=== PATIENT | female | born 1975 | race Caucasian/White ===

== ENCOUNTER → 2020-08-31 | Outpatient (CLI) | payer BC ==
[2020-08-31 08:04] LABS: Basophils # (A) 0.1 k/uL (0-0.2); Basophils % (A) 1 %; Eosinophils # (A) 0.4 k/uL (0-0.7); Eosinophils % (A) 4 %; HCT 43.5 % (34.0-46.0); HGB 14.6 gm/dL (11.4-16.0); Lymphocytes # (A) 1.4 k/uL (1.0-4.8); Lymphocytes % (A) 16 %; MCH 30.8 pg (25.0-35.0); MCHC 33.6 g/dL (31.0-37.0); MCV 91.7 fL (80.0-100.0); Mean Platelet Volume 7.7; Monocytes # (A) 0.5 k/uL (0-1.0); Monocytes % (A) 6 %; Neutrophils # (A) 6.3 k/uL (1.3-7.7); Neutrophils % (A) 72 %; Platelet Count 317 k/uL (150-450); RBC 4.74 m/uL (3.80-5.40); RDW 12.7 % (11.5-15.5); WBC 8.8 k/uL (3.8-10.6)
[2020-08-31 08:29] LABS: ALT 25 U/L (4-34); AST 26 U/L (14-36); African American GFR (CKD) >90 (>60 ml/min/1.73 sqM); Albumin 4.4 g/dL (3.5-5.0); Albumin/Globulin Ratio 1.6; Alkaline Phosphatase 56 U/L (38-126); Anion Gap 7 mmol/L; Blood Urea Nitrogen 11 mg/dL (7-17); Calcium 9.8 mg/dL (8.4-10.2); Carbon Dioxide 28 mmol/L (22-30); Chloride 103 mmol/L (98-107); Globulin 2.8 g/dL; Glucose 116 mg/dL (74-99); Non-African American GFR(CKD) >90 (>60 ml/min/1.73 sqM); Potassium 4.8 mmol/L (3.5-5.1); Sodium 138 mmol/L (137-145); Total Bilirubin 1.4 mg/dL (0.2-1.3); Total Protein 7.2 g/dL (6.3-8.2)
[2020-08-31 08:45] LABS: T4, Free (Free Thyroxine) 0.83 ng/dL (0.78-2.19)
--- NOTE | 2020-08-31 08:48 | US ---
EXAMINATION TYPE: US abdomen complete DATE OF EXAM: 08/31/2020 COMPARISON: NONE CLINICAL HISTORY: R10.9 ABD PAIN. pain EXAM MEASUREMENTS: Liver Length: 14.3 cm Gallbladder Wall: .2 cm CBD: .4 cm Spleen: 10.2 cm Right Kidney: 10.8 x 4.2 x 4.4 cm Left Kidney: 10.6 x 5.3 x 4.4 cm Pancreas: Tail obscured by overlying bowel gas Liver: wnl Gallbladder: wnl Evidence for sonographic Velez's sign: No CBD: wnl Spleen: wnl Right Kidney: wnl Left Kidney: wnl Upper IVC: wnl Abd Aorta: wnl The liver is homogenous. The intrahepatic portion of the IVC and proximal abdominal aorta are within normal limits. There is no evidence of cholelithiasis. Common bile duct is unremarkable. The visu alized portions of the pancreas are homogenous. The spleen is unremarkable. Kidneys are symmetric a nd free of hydronephrosis. No renal lesions are seen. IMPRESSION: Unremarkable abdomen.
[2020-08-31 21:13] LABS: Chol/HDL Ratio 4.25; Cholesterol 204 mg/dL (0-200); LDL Cholesterol,Calculated 117.6 mg/dL (0.0-131.0)
[2020-08-31 21:24] LABS: Estradiol 143.2 pg/mL; Follicle Stimulating Hormone 9.3 mIU/mL
--- NOTE | 2020-09-10 08:26 | MM ---
Reason for exam: screening (asymptomatic). Last mammogram was performed 1 year and 9 months ago. History: Retro-pectoral silicone gel implants in both breasts, 2010. Physical Findings: A clinical breast exam by your physician is recommended on an annual basis and results should be correlated with mammographic findings. MG Screening Mammo Implant/CAD Bilateral CC, MLO, and ID view(s) were taken. Prior study comparison: December 16, 2018, mammogram, performed at [facility]. September 14, 2017, mammogram, performed at [facility]. There are scattered fibroglandular densities. There is no discrete abnormality. Bilateral implants are intact. No significant changes when compared with prior studies. ASSESSMENT: Negative, BI-RAD 1 RECOMMENDATION: Routine screening mammogram of both breasts in 1 year.
== END | disposition home or self-care (01) ==
LOC: RADMAMWWP 07:02 → MERGE 07:40
PROVIDERS: ATTEND Family Medicine
DX: R10.9 Unspecified abdominal pain (principal)
CPT/HCPCS: 76700; 77067; 80053; 80061; 82306; 82670; 83001; 83002; 84439; 84443; 85025

== ENCOUNTER 2021-02-20 08:14 | Emergency (ER) | payer BC ==
[2021-02-20] MEDS ORDERED: ONDANSETRON 4 MG/2 ML VIAL IVP STA (08:39)
[2021-02-20] MEDS ORDERED: MORPHINE SULFATE 4 MG/ML SYRINGE IV STA (08:39)
[2021-02-20] MEDS ORDERED: diphenhydrAMINE 50 MG/ML 1 ML VIAL IVP STA (08:39)
[2021-02-20] MEDS ORDERED: SODIUM CHLORIDE 0.9% 1,000 ML IV STA ×2 (08:39→09:27)
[2021-02-20] MEDS ORDERED: FAMOTIDINE 20 MG/2 ML VIAL IV STA (08:42)
--- NOTE | 2021-02-20 09:02 | ED ---
General Adult HPI - General Chief complaint: Abdominal Pain Stated complaint: Abd Pain/Vomiting Time Seen by Provider: 02/20/21 08:27 Source: patient, RN notes reviewed, old records reviewed Mode of arrival: ambulatory Limitations: no limitations - History of Present Illness Initial comments: Patient is a 45-year-old female with past medical history remarkable for chronic abdominal pain presents with Department complaining of acute on chronic abdomina l pain. States that her pain this morning was worse. States it was left-sided. Describes as a sharp, throbbing sensation. States is severe primarily left lower quadrant with radiation around the left flank. Endorses nausea as well as intermittent nonbilious nonbloody emesis. Denies any change in bowel movements and had normal bowel movement this morning. Denies any bloody emesis or bloody bowel movements. His no hematuria or dysuria. Denies any vaginal discharge. Denies any history of ovarian cysts. Denies any history of kidney stones. Denies any chest pain, shortness of breath. His no other acute complaints at this time. Believe she may have IBS, however this pain is worse. - Related Data Previous Rx's Medication Instructions Recorded HYDROcodone/APAP 5-325MG [[place] 5] 1 each PO Q6HR PRN 3 Days #12 tab 02/20/21 Ibuprofen [Motrin] 800 mg PO Q8H PRN 14 Days #42 tab 02/20/21 Ondansetron Odt [Zofran Odt] 4 mg PO Q8HR PRN 3 Days #9 tab 02/20/21 Tamsulosin HCl [Flomax] 0.4 mg PO DAILY #14 capsule 02/20/21 Allergies Allergy/AdvReac Type Severity Reaction Status Date / Time No Known Allergies Allergy Verified 02/20/21 08:21 Review of Systems ROS Statement: Those systems with pertinent positive or pertinent negative responses have been documented in the HPI. Review of Systems: CONST: Denies fever EYES: Denies blurry vision ENT: Denies nasal congestion C/V: Denies Chest pain RESP: Denies shortness of breath GI: Endorses abdominal pain : Denies dysuria SKIN: Denies rash. MSK: Denies joint pain. NEURO: Denies headache ROS Other: All systems not noted in ROS Statement are negative. Past Medical History Past Medical History: No Reported History History of Any Multi-Drug Resistant Organisms: None Reported Past Surgical History: Breast Surgery, Section Past Psychological History: Anxiety, Depression Smoking Status: Former smoker Past Alcohol Use History: Occasional Past Drug Use History: None Reported General Exam - General Exam Comments Initial Comments: General: Appears in moderate distress secondary to abdominal pain. HEAD: Normal with no signs of head trauma. EYES: PERRLA, EOMI, conjunctiva normal, no discharge. ENT: Hearing grossly intact, normal oropharynx. RESPIRATORY: Clear breath sounds bilaterally. No wheezes, rales, or rhonchi. C/V: Regular rate and rhythm. S1 and S2 auscultated, no edema, peripheral pulses 2+ and intact throughout ABD: Abdomen soft, distended. Patient is mildly tender to palpation left lower quadrant. No CVA tenderness to percussion. No guarding or rebound tenderness. No peritoneal signs. Patient also has left flank tenderness as well. EXT: Normal range of motion, no obvious deformity SKIN: No rashes or lesions observed on exposed skin. NEURO: Alert and oriented 4. No focal deficits. Limitations: no limitations Course Vital Signs 02/20/21 02/20/21 08:21 10:00 Temperature 98 F 97.7 F Pulse Rate 75 71 Respiratory 18 14 Rate Blood Pressure 168/87 138/101 O2 Sat by Pulse 100 99 Oximetry Medical Decision Making - Medical Decision Making Based on the patient's presentation and physical exam, I'm concerned for acute intra-abdominal process for his current symptoms. We'll obtain abdominal laboratory studies. We'll also obtain CT abdomen and pelvis with contrast as well as ultrasound of both the pelvis to rule out torsion as well as renal ultrasound to evaluate for hydronephrosis in the setting of a kidney stone. Patient was in agreement this plan. She'll be administered IV analgesia, a GI cocktail, as well as IV fluids. Screening EKG will also be obtained. EKG showed normal sinus rhythm with no signs of acute ischemia.Laboratory studies are remarkable for a mild lactic acidosis of 2.6 which is likely secondary to nausea and vomiting. Urinalysis shows a large amount of blood, however no signs of infection. She is not . Imaging showed no signs of ovarian torsion. Patient does have mild hydronephrosis on the left side secondary to a minimally obstructing 3-4 mm kidney stone. This is an 11 mm lesion in the left lobe of the liver that should be followed up with MRI for further evaluation. Remainder the labs are unremarkable. Reevaluation come patient's symptoms resolved. She is tolerating oral intake. I do believe it is safer to be discharged home with follow-up with urology. She was in agreement this plan. We discussed the findings of her laboratory studies and imaging and I informed her that she has nephrolithiasis. I will provide the patient with a prescription for Flomax, NORCO 5. I instructed the patient to follow up with their PCP in the next 3 days. [I provided contact information for follow up with] urology. I explained that the patient should return to the emergency department if they experience any worsening symptoms. Strict return precautions were discussed with the patient. The patient expressed understanding of these instructions. I answered all questions that the patient had. The patient was discharged home in fair condition with their prescriptions and follow up information. - Lab Data Result diagrams: 02/20/21 08:46 02/20/21 08:46 Lab Results 02/20/21 02/20/21 02/20/21 Range/Units 08:36 08:46 08:46 WBC 7.3 (3.8-10.6) k/uL RBC 4.95 (3.80-5.40) m/uL Hgb 15.7 (11.4-16.0) gm/dL Hct 46.1 H (34.0-46.0) % MCV 93.0 (80.0-100.0) fL MCH 31.7 (25.0-35.0) pg MCHC 34.1 (31.0-37.0) g/dL RDW 13.2 (11.5-15.5) % Plt Count 383 (150-450) k/uL MPV 8.2 Neutrophils % 72 % Lymphocytes % 18 % Monocytes % 5 % Eosinophils % 3 % Basophils % 1 % Neutrophils # 5.2 (1.3-7.7) k/uL Lymphocytes # 1.3 (1.0-4.8) k/uL Monocytes # 0.4 (0-1.0) k/uL Eosinophils # 0.2 (0-0.7) k/uL Basophils # 0.1 (0-0.2) k/uL PT 9.8 (9.0-12.0) sec INR 0.9 (<1.2) APTT 21.1 L (22.0-30.0) sec Sodium (137-145) mmol/L Potassium (3.5-5.1) mmol/L Chloride (98-107) mmol/L Carbon Dioxide (22-30) mmol/L Anion Gap mmol/L BUN (7-17) mg/dL Creatinine (0.52-1.04) mg/dL Est GFR (CKD-EPI)AfAm (>60 ml/min/1.73 sqM) Est GFR (CKD-EPI)NonAf (>60 ml/min/1.73 sqM) Glucose (74-99) mg/dL Lactic Ac Sepsis Rflx Plasma Lactic Acid Abdifatah (0.7-2.0) mmol/L Calcium (8.4-10.2) mg/dL Total Bilirubin (0.2-1.3) mg/dL AST (14-36) U/L ALT (4-34) U/L Alkaline Phosphatase (38-126) U/L Total Protein (6.3-8.2) g/dL Albumin (3.5-5.0) g/dL Amylase (30-110) U/L Lipase (23-300) U/L Urine Color Urine Appearance (Clear) Urine pH (5.0-8.0) Ur Specific [place] (1.001-1.035) Urine Protein (Negative) Urine Glucose (UA) (Negative) Urine Ketones (Negative) Urine Blood (Negative) Urine Nitrite (Negative) Urine Bilirubin (Negative) Urine Urobilinogen (<2.0) mg/dL Ur Leukocyte Esterase (Negative) Urine RBC (0-5) /hpf Urine WBC (0-5) /hpf Ur Squamous Epith Cells (0-4) /hpf Urine Bacteria (None) /hpf Urine Mucus (None) /hpf Urine HCG, Qual Not Detected (Not Detectd) 02/20/21 02/20/21 02/20/21 Range/Units 08:46 08:46 08:46 WBC (3.8-10.6) k/uL RBC (3.80-5.40) m/uL Hgb (11.4-16.0) gm/dL Hct (34.0-46.0) % MCV (80.0-100.0) fL MCH (25.0-35.0) pg MCHC (31.0-37.0) g/dL RDW (11.5-15.5) % Plt Count (150-450) k/uL MPV Neutrophils % % Lymphocytes % % Monocytes % % Eosinophils % % Basophils % % Neutrophils # (1.3-7.7) k/uL Lymphocytes # (1.0-4.8) k/uL Monocytes # (0-1.0) k/uL Eosinophils # (0-0.7) k/uL Basophils # (0-0.2) k/uL PT (9.0-12.0) sec INR (<1.2) APTT (22.0-30.0) sec Sodium 137 (137-145) mmol/L Potassium 4.5 (3.5-5.1) mmol/L Chloride 105 (98-107) mmol/L Carbon Dioxide 21 L (22-30) mmol/L Anion Gap 11 mmol/L BUN 12 (7-17) mg/dL Creatinine 0.85 (0.52-1.04) mg/dL Est GFR (CKD-EPI)AfAm >90 (>60 ml/min/1.73 sqM) Est GFR (CKD-EPI)NonAf 82 (>60 ml/min/1.73 sqM) Glucose 184 H (74-99) mg/dL Lactic Ac Sepsis Rflx Plasma Lactic Acid Abdifatah 2.6 H* (0.7-2.0) mmol/L Calcium 10.2 (8.4-10.2) mg/dL Total Bilirubin 1.0 (0.2-1.3) mg/dL AST 26 (14-36) U/L ALT 28 (4-34) U/L Alkaline Phosphatase 61 (38-126) U/L Total Protein 8.5 H (6.3-8.2) g/dL Albumin 5.0 (3.5-5.0) g/dL Amylase 74 (30-110) U/L Lipase 210 (23-300) U/L Urine Color Yellow Urine Appearance Clear (Clear) Urine pH 7.0 (5.0-8.0) Ur Specific [place] 1.031 (1.001-1.035) Urine Protein Trace H (Negative) Urine Glucose (UA) Negative (Negative) Urine Ketones Negative (Negative) Urine Blood Large H (Negative) Urine Nitrite Negative (Negative) Urine Bilirubin Negative (Negative) Urine Urobilinogen <2.0 (<2.0) mg/dL Ur Leukocyte Esterase Negative (Negative) Urine RBC >182 H (0-5) /hpf Urine WBC 5 (0-5) /hpf Ur Squamous Epith Cells <1 (0-4) /hpf Urine Bacteria Rare H (None) /hpf Urine Mucus Rare H (None) /hpf Urine HCG, Qual (Not Detectd) 02/20/21 Range/Units 09:18 WBC (3.8-10.6) k/uL RBC (3.80-5.40) m/uL Hgb (11.4-16.0) gm/dL Hct (34.0-46.0) % MCV (80.0-100.0) fL MCH (25.0-35.0) pg MCHC (31.0-37.0) g/dL RDW (11.5-15.5) % Plt Count (150-450) k/uL MPV Neutrophils % % Lymphocytes % % Monocytes % % Eosinophils % % Basophils % % Neutrophils # (1.3-7.7) k/uL Lymphocytes # (1.0-4.8) k/uL Monocytes # (0-1.0) k/uL Eosinophils # (0-0.7) k/uL Basophils # (0-0.2) k/uL PT (9.0-12.0) sec INR (<1.2) APTT (22.0-30.0) sec Sodium (137-145) mmol/L Potassium (3.5-5.1) mmol/L Chloride (98-107) mmol/L Carbon Dioxide (22-30) mmol/L Anion Gap mmol/L BUN (7-17) mg/dL Creatinine (0.52-1.04) mg/dL Est GFR (CKD-EPI)AfAm (>60 ml/min/1.73 sqM) Est GFR (CKD-EPI)NonAf (>60 ml/min/1.73 sqM) Glucose (74-99) mg/dL Lactic Ac Sepsis Rflx Y Plasma Lactic Acid Abdifatah (0.7-2.0) mmol/L Calcium (8.4-10.2) mg/dL Total Bilirubin (0.2-1.3) mg/dL AST (14-36) U/L ALT (4-34) U/L Alkaline Phosphatase (38-126) U/L Total Protein (6.3-8.2) g/dL Albumin (3.5-5.0) g/dL Amylase (30-110) U/L Lipase (23-300) U/L Urine Color Urine Appearance (Clear) Urine pH (5.0-8.0) Ur Specific [place] (1.001-1.035) Urine Protein (Negative) Urine Glucose (UA) (Negative) Urine Ketones (Negative) Urine Blood (Negative) Urine Nitrite (Negative) Urine Bilirubin (Negative) Urine Urobilinogen (<2.0) mg/dL Ur Leukocyte Esterase (Negative) Urine RBC (0-5) /hpf Urine WBC (0-5) /hpf Ur Squamous Epith Cells (0-4) /hpf Urine Bacteria (None) /hpf Urine Mucus (None) /hpf Urine HCG, Qual (Not Detectd) - EKG Data -: EKG Interpreted by Me EKG Comments: 12-lead Electrocardiogram Interpretation Note EKG was reviewed and interpreted by myself. 12-lead ECG performed at 0855 is interpreted by me as revealing normal sinus rhythm at a rate of 67 beats per minute. [place] is normal. LA interval is 150 ms, QRS duration is 80 ms, QTc is 448 ms.. There were no ST or T wave abnormalities to suggest myocardial ischemia or injury. R wave progression across the precordium was satisfactory. By my interpretation this EKG is non-diagnostic for acute ischemia. Disposition Clinical Impression: Kidney stone on left side Disposition: HOME SELF-CARE Condition: Fair Instructions (If sedation given, give patient instructions): Kidney Stones (ED) Prescriptions: Tamsulosin HCl [Flomax] 0.4 mg PO DAILY #14 capsule Ibuprofen [Motrin] 800 mg PO Q8H PRN 14 Days #42 tab PRN Reason: Pain HYDROcodone/APAP 5-325MG [[place] 5] 1 each PO Q6HR PRN 3 Days #12 tab PRN Reason: Pain Ondansetron Odt [Zofran Odt] 4 mg PO Q8HR PRN 3 Days #9 tab PRN Reason: Nausea Is patient prescribed a controlled substance at d/c from ED?: Yes When asked, does pt state using other controlled substances?: No If prescribed controlled substance>3 days was MAPS reviewed?: Prescribed <3 Days Referrals: Joel Leung MD [Primary Care Provider] - 1-2 days Missael Marshall MD [STAFF PHYSICIAN] - 1-2 days
[2021-02-20 09:16] LABS: ALT 28 U/L (4-34); AST 26 U/L (14-36); African American GFR (CKD) >90 (>60 ml/min/1.73 sqM); Alkaline Phosphatase 61 U/L (38-126); Amylase 74 U/L (30-110); Anion Gap 11 mmol/L; Blood Urea Nitrogen 12 mg/dL (7-17); Calcium 10.2 mg/dL (8.4-10.2); Carbon Dioxide 21 mmol/L (22-30); Chloride 105 mmol/L (98-107); Glucose 184 mg/dL (74-99); Lipase 210 U/L (23-300); Non-African American GFR(CKD) 82 (>60 ml/min/1.73 sqM); Potassium 4.5 mmol/L (3.5-5.1); Sodium 137 mmol/L (137-145); Total Protein 8.5 g/dL (6.3-8.2)
[2021-02-20 09:23] LABS: INR 0.9 (<1.2); Prothrombin Time 9.8 sec (9.0-12.0)
[2021-02-20 09:32] LABS: Partial Thromboplastin Time 21.1 sec (22.0-30.0)
[2021-02-20 09:36] LABS: Basophils # (A) 0.1 k/uL (0-0.2); Basophils % (A) 1 %; Eosinophils # (A) 0.2 k/uL (0-0.7); Eosinophils % (A) 3 %; HCT 46.1 % (34.0-46.0); HGB 15.7 gm/dL (11.4-16.0); Lymphocytes # (A) 1.3 k/uL (1.0-4.8); Lymphocytes % (A) 18 %; MCH 31.7 pg (25.0-35.0); MCHC 34.1 g/dL (31.0-37.0); Mean Platelet Volume 8.2; Monocytes # (A) 0.4 k/uL (0-1.0); Monocytes % (A) 5 %; Neutrophils # (A) 5.2 k/uL (1.3-7.7); Neutrophils % (A) 72 %; Platelet Count 383 k/uL (150-450); RBC 4.95 m/uL (3.80-5.40); RDW 13.2 % (11.5-15.5); WBC 7.3 k/uL (3.8-10.6)
--- NOTE | 2021-02-20 10:04 | US ---
EXAMINATION TYPE: US renals and bladder DATE OF EXAM: 02/20/2021 COMPARISON: CT same day. CLINICAL HISTORY: eval for hydronephrosis. left flank pain EXAM MEASUREMENTS: Right Kidney: 11.3 x 4.4 x 4.9 cm Left Kidney: 12.6 x 5.9 x 4.9 cm *limitations due to large amount of overlying bowel content Right Kidney: no evidence of hydronephrosis Left Kidney: enlarged. Prominent collecting system. Bladder: not fully distended Bilateral Jets seen: no The urinary bladder is satisfactorily distended. Bilateral ureteral jets are not seen. When scanning right kidney adjacent liver is heterogeneously hyperechoic consistent with diffuse fatty infiltratio n. No right-sided hydronephrosis. Left kidney shows mild hydronephrosis IMPRESSION: Mild left-sided hydronephrosis due to obstructing 4 mm calculus in the proximal left uret er on same-day CT.
[2021-02-20 10:07] VITALS: BP 138/101; PULSE 71; RESP 14; TEMP 97.7
--- NOTE | 2021-02-20 10:07 | US ---
EXAMINATION TYPE: US transvaginal DATE OF EXAM: 02/20/2021 COMPARISON: NONE CLINICAL HISTORY: evaluate for ovarian torsion.. left flank pain. 2 prior c-sections TECHNIQUE: Transvaginal (TV). Date of LMP: 3 weeks ago EXAM MEASUREMENTS: Uterus: 8.9 x 4.7 x 5.8 cm Endometrial Stripe: 0.8 cm Right Ovary: 3.1 x 2.2 x 2.0 cm Left Ovary: unable to visualize 1. Uterus: Anteverted heterogeneous 2. Endometrium: appears wnl 3. Right Ovary: dominant follicle = 1.8cm. complex mixed area = 1.2 x 1.6 x 1.4cm 4. Left Ovary: Obscured by overlying bowel gas Spectral, color and waveform doppler imaging shows good arterial and venous flow within the right o vary;. 5. Bilateral Adnexa: appears wnl 6. Posterior cul-de-sac: wnl Anteverted uterus. Endometrial stripe measures within normal limits. No free fluid in pelvic cul-de-s ac. Right ovary is seen with peripheral 1.8 cm dominant follicle. Left ovary not clearly seen on ultr asound but measures normal in size on CT axial image 80. No suspicious adnexal masses. IMPRESSION: No suspicious adnexal masses.
--- NOTE | 2021-02-20 10:11 | CT ---
EXAMINATION TYPE: CT abdomen pelvis w con DATE OF EXAM: 02/20/2021 COMPARISON: None HISTORY: Lower pelvic and left sided abdominal pain CT DLP: 1193 mGycm Automated exposure control for dose reduction was used. CONTRAST: CT scan of the abdomen pelvis is performed with IV Contrast, patient injected with 100 mL of Isovue 3 00. FINDINGS- LUNG BASES- No significant abnormality is appreciated. LIVER/GB-as area of hypoattenuation involving the left lobe liver measuring 11 mm and 18 [place]oun[place] u nits. Possibly related to a cyst. Liver is somewhat heterogeneous and low in attenuation be seen with hepatitis or hepatic steatosis.. PANCREAS- No gross abnormality is seen. SPLEEN- No gross abnormality is seen. ADRENALS- No gross abnormality is seen. KIDNEYS/BLADDER-there is mild left hydronephrosis and the proximal left ureteral stone measuring 3 mm . Additional lower pole and midpole 1 mm left renal calculus. There is a 1 mm right renal calculus. BOWEL-bowel gas pattern is nonspecific with no obstruction. Changes of diverticulosis noted. Appendix normal. A few fluid-filled small bowel loops are seen which could be transient correlate to exclude an enteritis or ileus.. LYMPH NODES- No greater than 1cm abdominal or pelvic lymph nodes areappreciated. OSSEOUS STRUCTURES-mild hypertrophic changes of the spine. OTHER- bilateral breast prostheses. Small hiatal hernia. Small follicle or cyst related to the right ovary suspected. Small fat-containing periumbilical hernia. IMPRESSION- 1. Mild left hydroureteronephrosis secondary to 3 mm proximal left ureteral stone. Additional bilateral sub-5 mm renal calculi 2. Correlate with liver function studies to assess for hepatic steatosis or hepatocellular disease. I ndeterminate 11 mm lesion in the left lobe of the liver can be followed with MRI for further evaluati on. 3. Diverticulosis with no CT evidence of diverticulitis. There are few fluid-filled small bowel loops which could be transient. Correlate clinically to exclude a mild enteritis or ileus. 4. Probable dominant follicle or small right ovarian cyst
[2021-02-20 10:27] LABS: Appearance,Urine Clear (Clear); Bacteria,Urine Rare /hpf; Bilirubin,Urine Negative (Negative); Blood,Urine Large (Negative); Color,Urine Yellow; Glucose,Urine (UA) Negative (Negative); Ketones,Urine Negative (Negative); Leukocyte Esterase,Urine Negative (Negative); Mucus,Urine Rare /hpf; Nitrite,Urine Negative (Negative); Protein,Urine Trace (Negative); RBC,Urine >182 /hpf (0-5); Specific Gravity,Urine 1.031 (1.001-1.035); Squamous Epithelial Cell,Urine <1 /hpf (0-4); Urobilinogen,Urine <2.0 mg/dL (<2.0); WBC,Urine 5 /hpf (0-5)
== END 2021-02-20 11:24 | disposition home or self-care (01) ==
LOC: EC 08:14
DX: N20.0 Calculus of kidney (principal); F41.9 Anxiety disorder, unspecified; F32.A Depression, unspecified; Z87.891 Personal history of nicotine dependence; Z72.89 Other problems related to lifestyle
CPT/HCPCS: 36415; 93005; 80053; 82150; 83605; 83690; 85025; 85610; 85730; 81001; 81025; 93976; 76830; 76770; 74177; 99284; 96374; 96375 ×3; 96361; J2270; J1200; J2405; Q9967

== ENCOUNTER → 2021-02-22 | Outpatient (CLI) | payer BC ==
--- NOTE | 2021-02-22 14:49 | XR ---
EXAMINATION TYPE: XR KUB DATE OF EXAM: 02/22/2021 COMPARISON: CT 02/20/2021 HISTORY: Pain TECHNIQUE: One view abdominal series FINDINGS: The osseous structures are intact. The bowel gas pattern is nonspecific. Extensive retained fecal de bris throughout the colon. 3 mm calcification left upper quadrant similar position the recent CT scan . Arthropathy of the hips. Degenerative change of the spine. Additional calcifications in pelvis appe ar to be outside the course of the ureter on the CT scan therefore likely vascular. IMPRESSION: 1. Nonspecific abdomen. Extensive retained fecal debris correlate for constipation. 2. There is a faint 3 mm left upper quadrant similar position to recent CT. This likely lies within t he proximal left ureter and corresponds to the recent stone noted by CT scan. Findings stable
== END | disposition home or self-care (01) ==
LOC: RADXRMAIN 14:19
PROVIDERS: ATTEND Urology
DX: N20.1 Calculus of ureter (principal)
CPT/HCPCS: 74018

== ENCOUNTER → 2021-10-09 | Outpatient (CLI) | payer BC ==
--- NOTE | 2021-10-10 08:11 | MM ---
Reason for Exam: Hx of breast augmentation, asymptomatic. Last mammogram was performed 1 year(s) and 1 month(s) ago. Patient History: Menarche at age 11. First Full-Term at age 21. 2009, Bilateral Implants. Last menstrual period: 09/23/2021 Risk Values: [place] 5 year model risk: 0.8%. NCI Lifetime model risk: 8.3%. Prior Study Comparison: 09/14/2017 Screening Mammogram, [facility]. 12/16/2018 Screening Mammogram, [facility]. 08/31/2020 Bilateral Screening Mammogram, [facility]. Tissue Density: There are scattered fibroglandular densities. Findings: Analyzed By CAD. Bilateral breast prosthesis identified. No suspicious group minor calcifications within either breast. Focal asymmetry within the lower outer left breast middle depth. Overall Assessment: Incomplete: need additional imaging evaluation, BI-RAD 0 Management: Diagnostic Mammogram of the left breast. A clinical breast exam by your physician is recommended on an annual basis and results should be correlated with mammographic findings. [facility] will attempt to contact patient to return for supplemental views and ultrasound if indicated. Electronically signed and approved by: Kyle Li D.O.
== END | disposition home or self-care (01) ==
LOC: RADMAMWWP 13:20
PROVIDERS: ATTEND Family Medicine
DX: Z12.31 Encounter for screening mammogram for malignant neoplasm of breast (principal)
CPT/HCPCS: 77067

== ENCOUNTER → 2021-10-11 | Outpatient (CLI) | payer BC ==
--- NOTE | 2021-10-11 08:25 | MM ---
Reason for Exam: Additional evaluation requested from abnormal screening. Last screening mammogram was performed less than 1 month ago. Patient History: Menarche at age 11. First Full-Term at age 21. Patient has history of breast feeding. 2009, Bilateral Implants. Last menstrual period: 09/26/2021 Risk Values: [place] 5 year model risk: 0.8%. NCI Lifetime model risk: 8.3%. Prior Study Comparison: 09/14/2017 Screening Mammogram, [facility]. 12/16/2018 Screening Mammogram, [facility]. 08/31/2020 Bilateral Screening Mammogram, [facility]. 10/09/2021 Bilateral MG screening mammo implant/CAD, [facility]. Tissue Density: Left: There are scattered fibroglandular densities. Findings: Analyzed By CAD. Under compression the area in question appears to disperse normally. However, on the left mediolateral implant displaced compression view tomographic images, slice 25 of 54, there is persistence of this irregular density. This measures 2 mm and is 4 cm from the nipple inferior outer aspect approximately 4:00 position. Ultrasound is recommended for additional evaluation. This does not appear to be persistent on the additional tomographic images and compression views. Overall Assessment: Incomplete: need additional imaging evaluation, BI-RAD 0 Management: Diagnostic Breast Ultrasound of the left breast. A negative mammogram report should not preclude additional follow up of suspicious palpable abnormalities. Patient should continue monthly self breast exam. A clinical breast exam by your physician is recommended on an annual basis and results should be correlated with mammographic findings. Electronically signed and approved by: Frantz Richmond D.O. Radiologis
--- NOTE | 2021-10-11 08:55 | USB ---
Reason for Exam: Additional evaluation requested from abnormal screening. Patient History: Menarche at age 11. First Full-Term at age 21. Patient has history of breast feeding. 2010, Bilateral Implants. Risk Values: [place] 5 year model risk: 0.8%. NCI Lifetime model risk: 8.3%. Technique: Method: Targeted. Prior Study Comparison: 12/16/2018 Screening Mammogram, [facility]. 08/31/2020 Bilateral Screening Mammogram, [facility]. 10/09/2021 Bilateral MG screening mammo implant/CAD, [facility]. Findings: The lower outer quadrant of the left breast, the axilla of the left breast and the retroareolar of the left breast were scanned. No solid or cystic masses are identified. No suspicious abnormality to correlate with the mammographic finding. Overall Assessment: Negative, BI-RAD 1 Management: Diagnostic Mammogram of the left breast in 6 months. A clinical breast exam by your physician is recommended on an annual basis and results should be correlated with mammographic findings. Electronically signed and approved by: Frantz Richmond D.O. Radiologis
== END | disposition home or self-care (01) ==
LOC: RADMAMWWP 07:29
PROVIDERS: ATTEND Family Medicine
DX: R92.8 Other abnormal and inconclusive findings on diagnostic imaging of breast (principal)
CPT/HCPCS: 77061; 77065

== ENCOUNTER → 2021-11-04 | Outpatient (CLI) | payer BC ==
[2021-11-04 16:20] LABS: Chol/HDL Ratio 5.01 Ratio; LDL Cholesterol,Calculated 115.1 mg/dL (0.0-131.0)
[2021-11-04 19:31] LABS: Clam IgE <0.10 kU/L; Codfish IgE <0.10 kU/L; Egg White IgE 0.22 kU/L; Peanut IgE 0.25 kU/L; Scallop IgE <0.10 kU/L; Shrimp IgE <0.10 kU/L; Walnut IgE (Food) <0.10 kU/L
== END | disposition home or self-care (01) ==
LOC: LABWHC1 08:24
PROVIDERS: ATTEND Nurse Practitioner Family
DX: E78.5 Hyperlipidemia, unspecified (principal); E55.9 Vitamin D deficiency, unspecified; R10.9 Unspecified abdominal pain
CPT/HCPCS: 36415; 80061; 82306; 82785; 86003

== ENCOUNTER → 2022-07-17 | Outpatient (CLI) | payer BC ==
--- NOTE | 2022-07-17 08:34 | MM ---
Reason for Exam: Follow-up at short interval from prior study. Last screening mammogram was performed 10 month(s) ago. Patient History: Menarche at age 11. First Full-Term at age 21. Perimenopausal. Patient has history of breast feeding. 2009, Bilateral Implants. Risk Values: Jania 5 year model risk: 0.8%. NCI Lifetime model risk: 8.2%. Prior Study Comparison: 09/14/2017 Screening Mammogram, [facility]. 12/16/2018 Screening Mammogram, [facility]. 08/31/2020 Bilateral Screening Mammogram, [facility]. 10/09/2021 Bilateral MG screening mammo implant/CAD, [facility]. 10/11/2021 Left US breast workup limited LT, [facility]. 10/11/2021 Left MG 3D work up w/cad w/imp LT, [facility]. Tissue Density: There are scattered fibroglandular densities. Findings: Bilateral retropectoral silicone implants. The previously questioned lower outer quadrant focal asymmetry on the left has not persisted. No significant change from prior exams. Overall Assessment: Benign, BI-RAD 2 Management: Screening Mammogram of both breasts in 1 year. Further clinical management of patient's left breast pain. Results were given to the patient verbally at the time of exam. Patient should continue monthly self-breast exams. A clinical breast exam by your physician is recommended on an annual basis. This exam should not preclude additional follow-up of suspicious palpable abnormalities. Note on Jania scores and lifetime risk: 1. A Jania score greater than 3% is considered moderate risk. If this is the case, consider specialist referral to assess eligibility for a risk reducing agent. 2. If overall lifetime risk for the development of breast cancer is 20% or higher, the patient may qualify for future screening with alternating mammogram and breast MRI. Electronically signed and approved by: Karel Young M.D. Radiologist
== END | disposition home or self-care (01) ==
LOC: RADMAMWWP 06:52
PROVIDERS: ATTEND Family Medicine
DX: N64.4 Mastodynia (principal)
CPT/HCPCS: 77062; 77066

== ENCOUNTER → 2022-12-29 | Outpatient (CLI) | payer BC ==
[2022-12-29 11:07] LABS: Basophils # (A) 0.11 X 10*3/uL (0.00-0.10); Basophils % (A) 1.9 %; Eosinophils # (A) 0.95 X 10*3/uL (0.04-0.35); Eosinophils % (A) 16.8 %; HCT 45.4 % (37.2-46.3); HGB 14.3 g/dL (12.0-15.0); Lymphocytes # (A) 1.03 X 10*3/uL (0.90-5.00); Lymphocytes % (A) 18.2 %; MCH 29.1 pg (27.0-32.0); MCHC 31.5 g/dL (32.0-37.0); MCV 92.5 FL (80.0-97.0); Monocytes % (A) 8.8 %; NRBC Per 100 WBC 0 X 10*3/uL (0.00-0.01); Neutrophils # (A) 3.05 X 10*3/uL (1.80-7.70); Neutrophils % (A) 53.9 %; Platelet Count 391 X 10*3/uL (140-440); RBC 4.91 X 10*6/uL (4.10-5.20); RDW 13.1 % (11.5-14.5); WBC 5.66 X 10*3/uL (4.50-10.00)
[2022-12-29 11:30] LABS: ALT 41 U/L (8-44); AST 30 U/L (13-35); Albumin 4.5 g/dL (3.8-4.9); Albumin/Globulin Ratio 1.67 Ratio (1.60-3.17); Alkaline Phosphatase 37 U/L (41-126); Blood Urea Nitrogen 11.7 mg/dL (9.0-27.0); Calcium 9.8 mg/dL (8.7-10.3); Carbon Dioxide 22.2 mmol/L (21.6-31.8); Chloride 107 mmol/L (96-109); Chol/HDL Ratio 3.14 Ratio; Globulin 2.7 g/dL (1.6-3.3); Glucose 117 mg/dL (70-110); LDL Cholesterol,Calculated 93.4 mg/dL (0.0-131.0); Potassium 4.1 mmol/L (3.5-5.5); Sodium 140 mmol/L (135-145); T4, Free (Free Thyroxine) 1.02 ng/dL (0.80-1.80); Total Bilirubin 0.4 mg/dL (0.3-1.2); Total Protein 7.2 g/dL (6.2-8.2); VLDL Calculation 18.32 mg/dL (5.00-40.00)
== END | disposition home or self-care (01) ==
LOC: LABWHC1 07:46
PROVIDERS: ATTEND Family Medicine
DX: Z00.01 Encounter for general adult medical examination with abnormal findings (principal); Z13.1 Encounter for screening for diabetes mellitus; E78.5 Hyperlipidemia, unspecified; E55.9 Vitamin D deficiency, unspecified
CPT/HCPCS: 36415; 80053; 80061; 82306; 83036; 84439; 84443; 85025

== ENCOUNTER → 2023-04-16 | Outpatient (CLI) | payer BC ==
--- NOTE | 2023-04-17 09:30 | MR ---
EXAMINATION TYPE: MR lumbar spine wo con DATE OF EXAM: 04/16/2023 COMPARISON: CT abdomen and pelvis February 20, 2021 HISTORY: low back pain with RLE radiculopathy for 1 month, no sx, no CA TECHNIQUE: Multiplanar, multisequence imaging of the lumbar spine is performed without IV contrast. FINDINGS: Sagittal images of the lumbar spine show vertebral body heights and alignment to appear sat isfactory. Disc desiccation at L4-L5 level. The disc space heights are maintained. The conus medulla ris is normal in position and signal ending at mid L1 level. The bone marrow signal intensity is wit hin normal limits. Axial images show T12-L1 through L3-L4 levels to appear within normal limits. Axial images at L4-L5 level show focal left foraminal disc protrusion and annular tear causing asymme tric moderate left-sided neural foraminal narrowing on axial image 8 and sagittal image 5. Spinal can al is preserved. Right-sided neural foramen is patent. Mild facet arthropathy is present bilaterally. Axial images at L5-S1 level show mild facet arthropathy bilaterally. Paraspinal muscle bulk is preserved. 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 No significant find ings seen to account for patient's right-sided radiculopathy type symptoms however.
== END | disposition home or self-care (01) ==
LOC: RADMRIMAIN 15:45
PROVIDERS: ATTEND Family Medicine
DX: M47.27 Other spondylosis with radiculopathy, lumbosacral region (principal)
CPT/HCPCS: 72148

== ENCOUNTER → 2024-06-16 | Outpatient (CLI) | payer BC ==
--- NOTE | 2024-06-16 15:10 | MM ---
Reason for Exam: Screening (asymptomatic). Last mammogram was performed 1 year(s) and 11 month(s) ago. Patient History: Menarche at age 11. First Full-Term at age 21. Perimenopausal. Patient has history of breast feeding. 2010, Bilateral Implants. Last menstrual period: 06/09/2024 Risk Values: Jania 5 year model risk: 0.9%. NCI Lifetime model risk: 7.9%. Prior Study Comparison: 10/09/2021 Bilateral MG screening mammo implant/CAD, [facility]. 10/11/2021 Left MG 3D work up w/cad w/imp LT, [facility]. 07/17/2022 Bilateral MG 3D diag mammo imp w/cad ABE, [facility]. Tissue Density: There are scattered areas of fibroglandular density. Findings: Analyzed By CAD. Bilateral breast implants appear intact. Right breast: There is no suspicious group of microcalcifications or new suspicious mass. Left breast: There is no suspicious group of microcalcifications or new suspicious mass. Overall Assessment: Benign, BI-RAD 2 Management: Screening Mammogram of both breasts in [address] [facility] will attempt to contact patient to return for supplemental views and ultrasound if indicated. Patient should continue monthly self-breast exams. A clinical breast exam by your physician is recommended on an annual basis. This exam should not preclude additional follow-up of suspicious palpable abnormalities. Note on Jania scores and lifetime risk: 1. A Jania score greater than 3% is considered moderate risk. If this is the case, consider specialist referral to assess eligibility for a risk reducing agent. 2. If overall lifetime risk for the development of breast cancer is 20% or higher, the patient may qualify for future screening with alternating mammogram and breast MRI. [facility], , 06/16/2024 3:07 PM. Electronically signed and approved by: Nima Christy DO
== END | disposition home or self-care (01) ==
LOC: RADMAMWWP 14:04
PROVIDERS: ATTEND Family Medicine
DX: Z12.31 Encounter for screening mammogram for malignant neoplasm of breast (principal); R92.323 Mammographic fibroglandular density, bilateral breasts
CPT/HCPCS: 77063; 77067